=== PATIENT | male | born 1980 | race Two or more races ===

== ENCOUNTER 2018-10-06 14:35 | Emergency (ER) | payer SELFPAY ==
[~2018-10-06] VITALS: Ht 190.5 cm; Wt 111.6 kg
[2018-10-06 14:39] VITALS: BP 133/95
[2018-10-06] MEDS ORDERED: KETOROLAC TROMETHAMINE INJ 60 MG/2 ML VIAL IM ONE ×2 (15:08→15:30)
== END 2018-10-06 15:46 | disposition home or self-care (01) ==
LOC: ER 14:38
DX: S16.1XXA Strain of muscle, fascia and tendon at neck level, initial encounter (principal); F41.9 Anxiety disorder, unspecified; V49.49XA Driver injured in collision with other motor vehicles in traffic accident, initial encounter; Y93.89 Activity, other specified; Y92.413 State road as the place of occurrence of the external cause; Y99.8 Other external cause status
CPT/HCPCS: 72125; 96372; 99284; J1885